=== PATIENT | male | born 2005 | race African-American/Black ===

== ENCOUNTER 2025-05-19 23:23 | Outpatient (CLI) | payer MEDICAID, SELFPAY | END 2025-05-19 23:24 | disposition home or self-care (01) | LOC: AMB 05-22 17:19 | PROVIDERS: Visit Provider Family Medicine | DX: R41.82 Altered mental status, unspecified (principal); F10.129 Alcohol abuse with intoxication, unspecified; R11.10 Vomiting, unspecified | CPT/HCPCS: A0425; A0427 ==

== ENCOUNTER 2025-05-19 23:50 | Emergency (ER) | payer MEDICAID, SELFPAY ==
[2025-05-19 23:58] VITALS: BP 131/75; PULSE 66; RESP 14; TEMP 36.8; O2SAT 100; BMI 26.2
--- NOTE | 2025-05-20 | ED.AMS ---
HPI - Altered Mental Status General Time Seen by Provider: 00:00 Date Seen: 05/20/25 Chief Complaint: Alcohol/Intoxication Stated Complaint: ETOH Time Seen by Provider: 05/20/25 00:00 Source: patient and EMS Mode of arrival: EMS Limitations: altered mental status History of Present Illness HPI narrative: Carlton is a 20 yo male who presents to the ED by EMS for evaluation of AMS. History is limited due to altered mental status. Per EMS patient found behind [employer] with concerns for alcohol intoxication. Reported the patient was left there by his [place] friends. Denies any trauma or injury. Reported too much alcohol intake. Vomiting prior to arrival. EMS gave IV Zofran, 250cc IVF. No other history at this time. Related Data Allergies Allergy/AdvReac Type Severity Reaction Status Date / Time Unable to Assess Allergy Verified 05/20/25 00:06 Review of Systems Status of ROS: Reports: unobtainable due to mental status Exam Narrative: Exam Narrative: General: Afebrile, no acute distress HEENT: Normocephalic, atraumatic, PERRL, conjunctiva normal. MMM Neck: non-tender, supple Cardio: regular rate. regular rhythm Resp: Normal work of breathing, no respiratory distress, lungs clear bilaterally, no wheezing, rhonchi, rales Chest/Back: no visual signs of trauma, no midline tenderness, no CVA tenderness Abdomen: soft, non distension, no tenderness, no peritoneal signs Neuro: Decreaesed responsiveness, responsive to verbal and painful stimuli, +slurred speech, no focal neurological deficit. MSK: no deformities. Normal passive range of motion Integumentary/Skin: no rash visualized, normal color Psych:intoxicated Const: Vital Signs, click to edit/add: Vital Signs - 24 hr 05/19/25 23:58 05/20/25 00:32 Temperature 98.3 F Pulse Rate [Right Pulse Oximeter] 66 Respiratory Rate 14 Blood Pressure [Ri ght Upper Arm] 131/75 Pulse Oximetry 100 98 Oxygen Delivery Me thod Room Air Course Vital Signs Vital signs: Initial Vital Signs Temperature 98.3 F 05/19/25 23:58 Temperature Source Temporal Artery Scan 05/19/25 23:58 Pulse Rate 66 05/19/25 23:58 Pulse Rhythm Regular 05/19/25 23:58 Pulse Strength 3+ Normal 05/19/25 23:58 Respiratory Rate 14 05/19/25 23:58 Blood Pressure 131/75 05/19/25 23:58 Blood Pressure Mean 93 05/19/25 23:58 Blood Pressure Position Sitting 05/19/25 23:58 Pulse Oximetry 100 05/19/25 23:58 Oxygen Delivery Method Room Air 05/19/25 23:58 Vital Signs Temperature 98.3 F 05/19/25 23:58 Pulse Rate 66 05/19/25 23:58 Respiratory Rate 14 05/19/25 23:58 Blood Pressure 131/75 05/19/25 23:58 Pulse Oximetry 100 05/19/25 23:58 Oxygen Delivery Method Room Air 05/19/25 23:58 Temperature 98.3 F 05/19/25 23:58 Pulse Rate 66 05/19/25 23:58 Respiratory Rate 14 05/19/25 23:58 Blood Pressure 131/75 05/19/25 23:58 Pulse Oximetry 98 05/20/25 00:32 Oxygen Delivery Method Room Air 05/19/25 23:58 Medications Administered Medications: Generic Name Dose Route Start Last Admin Trade Name Freq PRN Reason Stop Dose Admin Potassium Chloride 40 meq 05/20/25 02:36 05/20/25 02:41 Potassium Chloride 10 Meq Capsule Er PO 05/20/25 02:37 40 meq ONCE ONE Administration Discontinued Medications Generic Name Dose Route Start Last Admin Trade Name Freq PRN Reason Stop Dose Admin Sodium Chloride 1,000 mls @ 1,000 mls/hr 05/20/25 01:00 [employer]OR 05/20/25 02:23 0.9 % Sodium Chloride 1000 Ml IV 05/20/25 01:59 [employer] Infused .Q1H KIM Infusion MDM - Altered Mental Status MDM Narrative Medical decision making narrative: Carlton is a 20 yo male who presents to the ED by EMS for evaluation of AMS. Upon arrival patient with decreases of responsiveness/altered mental status however is responsive to painful and verbal stimuli. Patient hemodynamically stable vital signs within normal limits. No evidence of trauma. No report of trauma. I suspect patient's altered mental status is most likely secondary to acute alcohol intoxication. At this time will plan for continues close monitor in the emergency department of mental status, vital signs, and airway. If any worsening of symptoms, will plan to broaden workup. Comprehensive labs remarkable for white blood cell count 9.9, hemoglobin 13.1, potassium slightly low at 3.1, no other acute metabolic electrolyte abnormality, lactic acid elevated at 3.3 which I suspect is most likely secondary to acute alcohol intoxication, INR normal, salicylate, acetaminophen level negative. Alcohol level 0.14. Potassium was treated in the emergency department and on re-evaluation patient awake, alert, talking in ambulating without difficulty. Patient denies any trauma or injury, states that the drink too much. Repeat lactic acid 2.1 patient is requesting discharge home. Recommend continue supportive care, oral hydration. Patient discharged with [facility] act housing. Return precautions discussed. Patient understands and agrees the plan. Medical Records Attestation: I reviewed the patient's medical records. Lab Data Attestation: I reviewed the patient's lab results. Labs: Lab Results 05/20/25 05/20/25 05/20/25 Range/Units 00:08 00:23 02:23 WBC 9.91 (4.50-11.00) K/uL RBC 5.97 H (4.30-5.90) m/uL Hgb 13.1 L (13.5-17.5) gm/dL Hct 42.9 (37.0-53.0) % MCV 72 L (80-100) fL MCH 22 L (26-34) pg MCHC 31 L (32-36) gm/dL RDW Coeff of Harpal 16.4 H (11.5-15.5) % Plt Count 222 (140-440) K/uL Neut % (Auto) 45.3 (42.0-72.0) % Lymph % (Auto) 45.8 H (20-44) % [place] % (Auto) 6.8 (0.0-11.0) % Eos % (Auto) 1.0 (0.0-7.0) % Baso % (Auto) 0.3 (0.0-3.0) % Neut # (Auto) 4.49 (1.7-7.0) K/uL Lymph # (Auto) 4.50 H (0.90-2.90) K/uL [place] # (Auto) 0.70 (0.00-0.90) K/UL Eos # (Auto) 0.10 (0.00-0.50) K/uL Baso # (Auto) 0.03 (0.00-0.30) K/uL Abs Immat Gran (auto) 0.08 (0.00-0.30) K/uL Imm/Tot Granulo (auto) 0.8 % INR 1.04 (0.91-1.10) Sodium 140 (135-149) mmol/L Potassium 3.1 L (3.6-5.1) mmol/L Chloride 106 (96-114) mmol/L Carbon Dioxide 24 (20-32) mmol/L Anion Gap 10 (7-15) mEq/L BUN 14 (5-24) mg/dL Creatinine 1.1 (0.5-1.5) mg/dL Estimated Creat Clear 131.52 Estimated GFR 99 ml/min Glucose 168 H (60-115) mg/dL Lactate 3.3 H 2.1 H (0.5-1.9) mmol/L Calcium 8.6 (8.4-10.6) mg/dL Total Bilirubin 0.4 (0.1-1.5) mg/dL AST 36 H (12-35) U/L ALT 27 (4-50) U/L Alkaline Phosphatase 109 (40-150) U/L Total Protein 6.9 (6.0-8.3) g/dL Albumin 4.2 (3.3-5.0) g/dL Salicylates < 1.0 L (1.0-10) mg/dL Acetaminophen < 10.0 (10.0-30.0) ug/mL Ethyl Alcohol 0.14 H (0.01-0.03) % Discharge Plan Discharge Clinical Impression: Altered mental status, Alcoholic intoxication, Acute hypokalemia Patient Disposition: Home, Self-Care Condition: Improved Additional Instructions: Please rest, drink plenty of fluids. Please return to the emergency department if any worsening symptoms. It was a pleasure taking care of you today. We hope you feel better soon. Stand Alone Forms: [employer] Info Instructions
[2025-05-20 00:32] VITALS: O2SAT 98
[2025-05-20 00:34] LABS: Hematocrit* 42.9 % (37.0-53.0); Hemoglobin* 13.1 gm/dL (13.5-17.5); Immature Granulocytes Abs Auto 0.08 K/uL (0.00-0.30); Immature Granulocytes Pct Auto 0.8 %; Mean Corpuscular HGB Conc 31 gm/dL (32-36); Mean Corpuscular Hemoglobin 22 pg (26-34); Mean Corpuscular Volume 72 fL (80-100); RDW Coefficient of Variation % 16.4 % (11.5-15.5); Red Blood Count* 5.97 m/uL (4.30-5.90); White Blood Count* 9.91 K/uL (4.50-11.00)
[2025-05-20 00:37] LABS: Lymphocytes Absolute Auto 4.50 K/uL (0.90-2.90); Slide Review Reflex No
[2025-05-20 00:40] LABS: Lactate* 3.3 mmol/L (0.5-1.9)
[2025-05-20 00:42] LABS: Albumin* 4.2 g/dL (3.3-5.0); Chloride* 106 mmol/L (96-114); Potassium* 3.1 mmol/L (3.6-5.1); Sodium* 140 mmol/L (135-149)
[2025-05-20 00:45] LABS: Alanine Aminotransferase* 27 U/L (4-50); Alkaline Phosphatase* 109 U/L (40-150); Anion Gap 10 mEq/L (7-15); Aspartate Amino Transferase* 36 U/L (12-35); Bilirubin Total* 0.4 mg/dL (0.1-1.5); Blood Urea Nitrogen* 14 mg/dL (5-24); Calcium* 8.6 mg/dL (8.4-10.6); Carbon Dioxide* 24 mmol/L (20-32); Creatinine* 1.1 mg/dL (0.5-1.5); Est. Creatinine Clearance* 131.52; Estimated Glomerular Filt Rate 99 ml/min; Glucose* 168 mg/dL (60-115); Total Protein* 6.9 g/dL (6.0-8.3)
[2025-05-20 00:46] LABS: Ethanol* 0.14 % (0.01-0.03)
[2025-05-20 00:47] LABS: INR 1.04 (0.91-1.10); Prothrombin Time 14.4 Seconds
[2025-05-20 01:02] LABS: Acetaminophen* < 10.0 ug/mL (10.0-30.0); Salicylate* < 1.0 mg/dL (1.0-10)
[2025-05-20 02:35] LABS: Lactate* 2.1 mmol/L (0.5-1.9)
[2025-05-20] MEDS: POTASSIUM CHLORIDE 10 MEQ CAPSULE ER 40 MEQ PO (02:41)
== END 2025-05-20 02:51 | disposition home or self-care (01) ==
PROVIDERS: Emergency Provider Emergency Medicine
DX: F10.120 Alcohol abuse with intoxication, uncomplicated (principal); E87.6 Hypokalemia
CPT/HCPCS: 36415; 80048; 80053; 80143; 80179; 82077; 83605; 85025; 85610; 94761; 96360; 99284; 99285; A9270; J7030